=== PATIENT | female | born 1955 | race Caucasian/White ===

== ENCOUNTER 2016-07-27 01:46 | Inpatient (IN) | payer MEDICAID ==
[~2016-07-27] VITALS: Ht 157.5 cm; Wt 73.3 kg
[2016-07-27] VITALS (13 sets, daily range): BP systolic 104–173; BP diastolic 47–97; PULSE 79–111; RESP 15–29; TEMP 99.1–100.7; O2SAT 89–97
[2016-07-27] MEDS ORDERED: RESP: ALBUTEROL 2.5 MG/IPRATROPIUM 0.5 MG NEB (SCH) INH ONE (02:15)
[2016-07-27] MEDS ORDERED: SODIUM CHLORIDE 0.9% FLUSH 10 ML FLUSH IVF PRN ×2 (02:15→06:00)
[2016-07-27 02:29] LABS: AUTOMATED NEUTROPHIL # 2.5 TH/MM3 (1.8-7.7); BASOPHIL % 0.3 % (0.0-2.0); EOSINOPHIL # 0.1 TH/MM3 (0-0.4); EOSINOPHIL % 2.2 % (0.0-4.0); HEMATOCRIT 39.9 % (35.0-46.0); HEMO FLAGS DIFF FINAL; LYMPH % 33.4 % (9.0-44.0); LYMPHOCYTE # 1.5 TH/MM3 (1.0-4.8); MEAN CELL VOLUME 87.1 FL (80.0-100.0); MEAN CORPUSCULAR HGB CONC 33.3 % (32.0-36.0); MONO % 11.5 % (0.0-8.0); NEUT % 52.6 % (16.0-70.0); PLATELET COUNT 189 TH/MM3 (150-450); RED BLOOD COUNT 4.59 MIL/MM3 (4.00-5.30); RED CELL DISTRIBUTION WIDTH 12.9 % (11.6-17.2); WHITE BLOOD COUNT 4.6 TH/MM3 (4.0-11.0)
[2016-07-27 02:36] LABS: POTASSIUM 3.9 MEQ/L (3.5-5.1)
--- NOTE | 2016-07-27 02:45 | RADHPO ---
EXAM DATE/TIME: 07/27/2016 02:37 [facility] COMPARISON: No previous studies available for comparison. INDICATIONS : Shortness of breath. MEDICAL HISTORY : None. SURGICAL HISTORY : None. ENCOUNTER: Initial ACUITY: 3 days PAIN SCORE: 0/10 LOCATION: Bilateral chest FINDINGS: Portable AP view of the chest demonstrates a normal-sized cardiac silhouette. No effusion, consolidat ion, or pneumothorax is visualized. There is slight blunting of the right costophrenic sulcus. The crys edilia and soft tissues demonstrate no acute abnormality. CONCLUSION: No acute cardiopulmonary abnormality is identified. Ignacio Tran MD on July 27, 2016 at 2:43 Board Certified Radiologist. This report was verified electronically.
[2016-07-27] MEDS ORDERED: ASPI1TAB69 PO (02:47)
[2016-07-27] MEDS ORDERED: LEXA5TAB PO (02:47)
[2016-07-27] MEDS ORDERED: LEVO.125 PO (02:47)
[2016-07-27] MEDS ORDERED: Cholesterol Med (02:48)
[2016-07-27 03:08] LABS: BICARBONATE 28.7 MEQ/L (21.0-32.0); MAGNESIUM 1.9 MG/DL (1.5-2.5)
--- NOTE | 2016-07-27 03:14 | PD ---
HPI Chief Complaint: Respiratory Symptoms Time Seen by Provider: 02:07 Travel History International Travel<30 days: No Contact w/Intl Traveler<30days: No Traveled to known affect area: No History of Present Illness HPI 6-3 year-old female presents to the emergency department by private transportation for evaluation of cough congestion and shortness of breath 3 days. Patient reports she is visiting here from [place]. Patient states she's been here for approximately a week and is scheduled to go home tomorrow. Patient states when she first arrived she had one day of watery diarrhea without vomiting or fever or respiratory symptoms. Patient states symptoms resolved 3 days ago started with coughing congestion. Patient states that she has not had any phlegm production. Patient reports that approximately one month ago to 2 months ago in [place] she was diagnosed with pneumonia was given an inhaler at that time but does not typically use an inhaler did not bring it with her on vacation to [place]. Patient's had no fever chills. Patient denies chest pain no pleuritic chest pain. No report of lower extremity pain or swelling. [facility] Past Medical History Narrative Medical Arthritis anxiety high cholesterol bronchitis pneumonia fibromyalgia hypothyroidism cholecystectomy appendectomy alcohol use marijuana use nursing notes reviewed Hx Anticoagulant Therapy: Yes Arthritis: Yes Anxiety: Yes High Cholesterol: Yes Diminished Hearing: No Medical other: Yes (Fibromyalgia) Thyroid Disease: Yes Tetanus Vaccination: < 5 Years Influenza Vaccination: No Menopausal: Yes : 3 Para: 3 Past Surgical History Appendectomy: Yes Cholecystectomy: Yes Tonsillectomy: Yes Social History Alcohol Use: Yes (Rarely) Tobacco Use: No ("Quit 16 months ago.") Substance Use: Yes ("[place] rarely") Allergies-Medications (Allergen,Severity, Reaction): Coded Allergies: Compazine (Verified Allergy, Severe, UNKNOWN, 07/27/16) Tetracycline (Verified Allergy, Severe, Hives, 07/27/16) Reported Meds & Prescriptions Reported Meds & Active Scripts Active Reported [Cholesterol Med] Unknown Dose DAILY Lexapro (Escitalopram Oxalate) 5 Mg Tab 5 Mg PO DAILY Aspirin 81 Mg Tabdr 81 Mg PO DAILY Synthroid (Levothyroxine Sodium) 125 Mcg Tab 125 Mcg PO DAILY Review of Systems Except as stated in HPI: all other systems reviewed are Neg General / Constitutional: No: Fever, Chills HENT: Positive: Congestion Cardiovascular: No: Chest Pain or Discomfort Respiratory: Positive: Cough, Shortness of Breath, Wheezing Gastrointestinal: Positive: Diarrhea (one week ago), No: Nausea, Vomiting, Abdominal Pain Genitourinary: No: Dysuria Musculoskeletal: No: Myalgias, Arthralgias Skin: No Rash Neurologic: No: Weakness, Dizziness, Syncope Endocrine: No: Heat Intolerance Hematologic/Lymphatic: No: Easy Bruising Physical Exam Narrative GENERAL: Well-developed well-nourished female in no acute distress no respiratory distress SKIN: Warm and dry. HEAD: Normocephalic. EYES: No scleral icterus. No injection or drainage. NECK: Supple, trachea midline. No JVD or lymphadenopathy. CARDIOVASCULAR: Regular rate and rhythm without murmurs, gallops, or rubs. RESPIRATORY: Breath sounds equal bilaterally. No accessory muscle use. Rare expiratory wheeze no rales no rhonchi. GASTROINTESTINAL: Abdomen soft, non-tender, nondistended. MUSCULOSKELETAL: No cyanosis, or edema. Radial and dorsalis pedis pulses 2+ to palpation. BACK: Nontender without obvious deformity. No CVA tenderness. Data Data Last Documented VS Vital Signs Date Time Temp Pulse Resp B/P Pulse Ox O2 Delivery O2 Flow Rate FiO2 07/27/16 02:49 94 20 159/97 97 Room Air 07/27/16 01:55 99.2 Orders Complete Blood Count With Diff (07/27/16 02:07) Basic Metabolic Panel (Bmp) (07/27/16 02:07) B-Type Natriuretic Peptide (07/27/16 02:07) Magnesium (Mg) (07/27/16 02:07) Troponin I (07/27/16 02:07) Influenzae A/B Antigen (07/27/16 02:07) Iv Access Insert/Monitor (07/27/16 02:07) Electrocardiogram (07/27/16 02:07) Ecg Monitoring (07/27/16 02:07) Oximetry (07/27/16 02:07) Oxygen Administration (07/27/16 02:07) Chest, Single Ap (07/27/16 02:07) Sodium Chloride 0.9% Flush (Ns Flush) (07/27/16 02:15) Albuterol-Ipratropium Neb (Duoneb Neb) (07/27/16 02:15) Protein Corrected Calcium(Pcc) (07/27/16 02:10) D-Dimer (07/27/16 03:14) Calcium Gluconate Inj (Calcium Gluconate (07/27/16 03:45) Labs Laboratory Tests Test 07/27/16 02:10 White Blood Count 4.6 TH/MM3 Red Blood Count 4.59 MIL/MM3 Hemoglobin 13.3 GM/DL Hematocrit 39.9 % Mean Corpuscular Volume 87.1 FL Mean Corpuscular Hemoglobin 29.0 PG Mean Corpuscular Hemoglobin 33.3 % Concent Red Cell Distribution Width 12.9 % Platelet Count 189 TH/MM3 Mean Platelet Volume 8.8 FL Neutrophils (%) (Auto) 52.6 % Lymphocytes (%) (Auto) 33.4 % Monocytes (%) (Auto) 11.5 % Eosinophils (%) (Auto) 2.2 % Basophils (%) (Auto) 0.3 % Neutrophils # (Auto) 2.5 TH/MM3 Lymphocytes # (Auto) 1.5 TH/MM3 Monocytes # (Auto) 0.5 TH/MM3 Eosinophils # (Auto) 0.1 TH/MM3 Basophils # (Auto) 0.0 TH/MM3 CBC Comment DIFF FINAL Differential Comment Sodium Level 141 MEQ/L Potassium Level 3.9 MEQ/L Chloride Level 103 MEQ/L Carbon Dioxide Level 28.7 MEQ/L Anion Gap 9 MEQ/L Blood Urea Nitrogen 20 MG/DL Creatinine 0.86 MG/DL Estimat Glomerular Filtration 67 ML/MIN Rate Random Glucose 102 MG/DL Calcium Level 6.2 MG/DL Protein Corrected Calcium 6.4 MG/DL Magnesium Level 1.9 MG/DL Troponin I 0.02 NG/ML B-Type Natriuretic Peptide 21 PG/ML Total Protein 6.6 GM/DL [facility] Medical Decision Making Medical Screen Exam Complete: Yes Emergency Medical Condition: Yes Medical Record Reviewed: Yes Interpretation(s) EKG: Normal sinus rhythm rate [address] elevation or injury pattern change or ectopy noted bnp: 21, not elevated troponin I: 0.02, not elevated Last Impressions Chest X-Ray 07/27/16 0207 Signed Impressions: Service Date/Time: Wednesday, July 27, 2016 02:37 - CONCLUSION: No acute cardiopulmonary abnormality is identified. Ignacio Tran MD CBC & BMP Diagram 07/27/16 02:10 Vital Signs Date Time Temp Pulse Resp B/P Pulse Ox O2 Delivery O2 Flow Rate FiO2 07/27/16 02:49 94 20 159/97 97 Room Air 07/27/16 02:00 20 96 Room Air 07/27/16 02:00 96 Room Air 07/27/16 02:00 96 Room Air 07/27/16 01:55 99.2 88 20 173/84 96 Differential Diagnosis Dyspnea, bronchitis, pneumonia, CHF, PE, viral syndrome Narrative Course Patient placed on monitoring analyst EKG ordered IV access obtained specimens collected and sent for resulting patient administered DuoNeb updraft Lab values found grossly within normal range except for hypocalcemia does not yet protein and corrected D-dimer ordered 03:20 identified to have low calcium and protein corrected calcium is 6.4 patient informed of abnormal lab value and now reports that she's been told this before with further questioning she identifies that she has had parathyroidectomy and is supposed to be on calcium supplements at all times but has chosen not to do so. Patient administered calcium replacement. Hanh Fischer MD Jul 27, 2016 03:14
[2016-07-27 03:23] LABS: CALCIUM-PROTEIN CORRECTED 6.4 MG/DL (8.5-10.1)
[2016-07-27] MEDS ORDERED: CALCIUM GLUCONATE INJ 1 GM in DEXTROSE 5% IN WATER 100ML INJ 100 ML IV ONE ×2 (03:45)
[2016-07-27] MEDS ORDERED: methylPREDNISolone SOD SUCC 125 MG/2 ML VIAL IV PUSH ONE (03:45)
[2016-07-27] MEDS ORDERED: ONDANSETRON HCL 4 MG/2 ML VIAL IV PUSH ONE (03:45)
[2016-07-27] MEDS: RESP: ALBUTEROL 2.5 MG/IPRATROPIUM 0.5 MG NEB (SCH) INH ×2 (03:53→04:04)
[2016-07-27] MEDS ORDERED: CALCIUM GLUCONATE 500 MG TAB PO ONE (04:15)
[2016-07-27] MEDS ORDERED: IOHEXOL 350 MG/ML 10 ML VIAL (for RAD DIAG) IV ONE (05:23)
--- NOTE | 2016-07-27 05:27 | RADHPO ---
EXAM DATE/TIME: 07/27/2016 04:50 [facility] COMPARISON: CHEST SINGLE AP, July 27, 2016, 2:37. INDICATIONS : Shortness of breath for three days. IV CONTRAST: 80 cc Omnipaque 350 (iohexol) IV RADIATION DOSE: 11.02 CTDIvol (mGy) MEDICAL HISTORY : None SURGICAL HISTORY : Tonsillectomy. Cholecystectomy. ENCOUNTER: Initial ACUITY: 3 days PAIN SCALE: 0/10 LOCATION: chest TECHNIQUE: Volumetric scanning of the chest was performed using a pulmonary embolism protocol MIP images were re constructed. Using automated exposure control and adjustment of the mA and/or kV according to patien t size, radiation dose was kept as low as reasonably achievable to obtain optimal diagnostic quality images. FINDINGS: There is mild respiratory motion artifact. PULMONARY ARTERIES: No filling defects are seen in the pulmonary arteries through the segmental level. LUNGS: There is no consolidation or pneumothorax . Calcified granuloma is present in the right lung. There a re secretions in the left lower lobe bronchi. PLEURAE: There is no pleural thickening or pleural effusion. MEDIASTINUM: The heart and great vessels demonstrate no acute finding. There is coronary artery calcification and moderate to severe atherosclerotic disease of the aorta. There are nonenlarged calcified right hilar and mediastinal lymph nodes. MUSCULOSKELETAL: No acute abnormality is identified. MISCELLANEOUS: The visualized upper abdominal organs demonstrate no acute abnormality. There are calcifications with in the spleen. CONCLUSION: 1. No PE is identified. 2. There are mild secretions in the left lower lobe bronchus suspicious for aspiration. 3. There are imaging findings indicative of prior granulomatous infection. 4. Severe coronary calcification and atherosclerotic disease of aorta. Ignacio Tran MD on July 27, 2016 at 5:21 Board Certified Radiologist. This report was verified electronically.
[2016-07-27] MEDS ORDERED: CEFEPIME INJ 2,000 MG in SODIUM CHLORIDE 0.9% INJ 100 ML IV ONE (05:45)
[2016-07-27] MEDS ORDERED: VANCOMYCIN INJ 1,000 MG in SODIUM CHLOR 0.9% 250 ML INJ 250 ML IV ONE (05:45)
[2016-07-27] MEDS ORDERED: RESP: ALBUTEROL 2.5 MG/IPRATROPIUM 0.5 MG NEB (PRN) NEB (06:00)
[2016-07-27] MEDS ORDERED: SODIUM CHLORIDE 0.9% FLUSH 10 ML FLUSH IV FLUSH PRN (06:00)
[2016-07-27] MEDS ORDERED: ACETAMINOPHEN 325 MG TAB PO PRN (06:00)
[2016-07-27] MEDS ORDERED: BISACODYL 10 MG SUPP RECTAL PRN (06:00)
[2016-07-27] MEDS ORDERED: ONDANSETRON HCL 4 MG/2 ML VIAL IVP PRN (06:00)
[2016-07-27] MEDS ORDERED: Vancomycin Consult Pharmacy 1 EA OTHER SCH (06:00)
[2016-07-27] MEDS: SODIUM CHLOR 0.9% 1000 ML INJ 1,000 ML IV SCH ×2 (06:20→16:41)
[2016-07-27] MEDS: LEVOTHYROXINE SODIUM 125 MCG TAB PO SCH (07:22)
[2016-07-27] MEDS ORDERED: SODIUM CHLORIDE 0.9% FLUSH 10 ML FLUSH IV FLUSH SCH (09:00)
[2016-07-27] MEDS: BUDESONIDE-FORMOTEROL 160/4.5 MCG INHALER INH SCH ×2 (09:52→20:51)
[2016-07-27] MEDS: guaiFENesin E.R. 600 MG TAB PO SCH ×2 (09:52→20:53)
[2016-07-27] MEDS: ESCITALOPRAM OXALATE 10 MG TAB PO SCH (09:52)
[2016-07-27] MEDS: ASPIRIN EC 81 MG TABEC PO SCH (09:52)
[2016-07-27] MEDS: SODIUM CHLORIDE 0.9% FLUSH 10 ML FLUSH IV FLUSH SCH ×2 (09:53→20:51)
[2016-07-27] MEDS: ACETAMINOPHEN/HYDROcodone 325 MG/5 MG TAB PO PRN ×2 (10:01→15:53)
--- NOTE | 2016-07-27 10:33 | HHI.HP ---
[facility] Service [facility] Primary Care Physician Non-Staff Admission Diagnosis dyspnea w/ aspiriation; hypocalcemia; sirs Diagnoses: (1) Shortness of breath Diagnosis: Principal (2) History of tobacco use Diagnosis: Secondary (3) Hypoparathyroidism Diagnosis: Principal (4) Hypocalcemia Diagnosis: Secondary Chief Complaint: Ongoing dyspnea with associated cough and congestion Travel History International Travel<30 Days: No Contact w/Intl Traveler <30 Da: No Traveled to Known Affected Are: No Sepsis Criteria SIRS Criteria (2 or more): Heart rate over 90 Sepsis Criteria (SIRS+source): Infect source susp/known History of Present Illness Ms. Fuentes is a 61-year-old female with a known history of parathyroidectomy at age 11 (she is unaware of the indication) with hypoparathyroidism currently on synthroid, a 50-pack year smoking history, recent pneumonia a couple months ago. Per patient report she drove down here from [place] to visit her children. She complaints of ongoing shortness of breath for the past 3 days with associated nonproductive cough, congestion and diarrhea with nausea. Patient does complain of pressure in her chest when she coughs. She does admit to taking DayQuil and an expectorant with minimal relief. Patient states a couple months ago she was diagnosed with pneumonia, treated with steroids and antibiotics. Symptoms had subsided since but now have returned. Chest x-ray, influenza negative and BC pending. Significantly low protein corrected calcium, 6.4. Patient has been noncompliant in taking calcium to control her hypoparathyroidism "I never got around to it." Low-grade fevers noted. Denies any recent difficulty in swallowing. Diarrhea has now resolved. No abdominal pain. The patient has never been formally tested for COPD. She also has anxiety. Her son and [id number] are at bedside and are quite insistent that she be able to drive home with them tomorrow as the do not have a condo to stay in another now having to stay in a hotel in [place]. [id number] is also questioning if she can just have the speech therapy swallow evaluation done back in [place] "to avoid any more stress." Review of Systems Constitutional: COMPLAINS OF: Fatigue, Fever, DENIES: Diaphoretic episodes, Weight gain, Weight loss, Chills, Dizziness, Change in appetite, Night Sweats Endocrine: COMPLAINS OF: Heat/cold intolerance, DENIES: Abnorml menstrual pattern, Polydipsia, Polyuria, Polyphagia Eyes: DENIES: Blurred vision, Diplopia, Eye inflammation, Eye pain, Vision loss , Photosensitivity, Double Vision Ears, nose, mouth, throat: DENIES: Tinnitus, Hearing loss, Vertigo, Nasal discharge, Oral lesions, Throat pain, Hoarseness, Ear Pain, Running Nose, Epistaxis, Sinus Pain, Toothache, Odynophagia Respiratory: COMPLAINS OF: Cough, Shortness of breath, DENIES: Apneas, Snoring , Wheezing, Hemoptysis, Sputum production Cardiovascular: COMPLAINS OF: Chest pain, Dyspnea on Exertion, DENIES: Palpitations, Syncope, PND, Lower Extremity Edema, Orthopnea, Claudication Gastrointestinal: DENIES: Abdominal pain, Black stools, Bloody stools, Constipation, Diarrhea, Nausea, Vomiting, Difficulty Swallowing, Anorexia Genitourinary: DENIES: Abnormal vaginal bleeding, Dysmenorrhea, Dyspareunia, Sexual dysfunction, Urinary frequency, Urinary incontinence, Urgency, Hematuria , Dysuria, Nocturia, Vaginal discharge Musculoskeletal: COMPLAINS OF: Muscle aches, DENIES: Joint pain, Stiffness, Joint Swelling, Back pain, Neck pain Integumentary: DENIES: Abnormal pigmentation, Pruritus, Rash, Nail changes, Breast masses, Breast skin changes, Nipple discharge Hematologic/lymphatic: DENIES: Bruising, Lymphadenopathy Immunologic/allergic: DENIES: Eczema, Urticaria Neurologic: DENIES: Abnormal gait, Headache, Localized weakness, Paresthesias, Seizures, Speech Problems, Tremor, Poor Balance Psychiatric: DENIES: Anxiety, Confusion, Mood changes, Depression, Hallucinations, Agitation, Suicidal Ideation, Homicidal Ideation, Delusions Past Family Social History Past Medical History Fibromylagia Hypercholestermia Hypoparathyroidism History of tobacco use Past Surgical History Parathyroidectomy Cholecystectomy Appendectomy Tonsillectomy Reported Medications Reported Meds & Active Scripts Active Reported [Cholesterol Med] Unknown Dose DAILY Lexapro (Escitalopram Oxalate) 5 Mg Tab 5 Mg PO DAILY Aspirin 81 Mg Tabdr 81 Mg PO DAILY Synthroid (Levothyroxine Sodium) 125 Mcg Tab 125 Mcg PO DAILY Allergies: Coded Allergies: Compazine (Verified Allergy, Severe, UNKNOWN, 07/27/16) Tetracycline (Verified Allergy, Severe, Hives, 07/27/16) Family History No significant family history noted. Social History Patient lives in [place] at home alone. Admits to smoking cessation 16 months ago after a 50 pack year history. Occasional alcohol use. Denies any illicit drug use. Physical Exam Vital Signs Vital Signs Date Time Temp Pulse Resp B/P Pulse Ox O2 Delivery O2 Flow Rate FiO2 07/27/16 06:30 99.6 107 20 133/70 92 07/27/16 06:30 107 07/27/16 06:20 99.9 102 20 152/73 95 Nasal Cannula 2 07/27/16 06:20 95 Nasal Cannula 2.00 07/27/16 05:38 90 Nasal Cannula 2 07/27/16 05:15 99.7 111 20 145/67 95 Room Air 07/27/16 05:00 20 07/27/16 04:00 91 20 152/80 95 Room Air 07/27/16 02:49 94 20 159/97 97 Room Air 07/27/16 02:00 20 96 Room Air 07/27/16 02:00 96 Room Air 07/27/16 02:00 96 Room Air 07/27/16 01:55 99.2 88 20 173/84 96 Physical Exam GENERAL: This is a well-nourished, well-developed patient, in no apparent distress. SKIN: No rashes, ecchymoses or lesions. Cool and dry. HEAD: Atraumatic. Normocephalic. No temporal or scalp tenderness. EYES: Pupils equal round and reactive. Extraocular motions intact. No scleral icterus. No injection or drainage. No facial twitching. ENT: Nose without bleeding, purulent drainage or septal hematoma. Airway patent. NECK: Trachea midline. No JVD or lymphadenopathy. Supple, nontender, no meningeal signs. CARDIOVASCULAR: Regular rate and rhythm without murmurs, gallops, or rubs. RESPIRATORY: Coarse breath sounds throughout, with expiratory wheezing in right lower lobe. Breath sounds equal bilaterally. GASTROINTESTINAL: Abdomen soft, non-tender, nondistended. No hepato-splenomegaly , or palpable masses. No guarding. MUSCULOSKELETAL: Extremities without clubbing, cyanosis, or edema. No joint tenderness, effusion, or edema noted. No calf tenderness. Negative Homans sign bilaterally. NEUROLOGICAL: Awake and alert. Cranial nerves II through XII intact. Motor and sensory grossly within normal limits. Five out of 5 muscle strength in all muscle groups. Normal speech. Laboratory Laboratory Tests Test 07/27/16 07/27/16 07/27/16 02:10 03:40 05:57 White Blood Count 4.6 Red Blood Count 4.59 Hemoglobin 13.3 Hematocrit 39.9 Mean Corpuscular Volume 87.1 Mean Corpuscular Hemoglobin 29.0 Mean Corpuscular Hemoglobin 33.3 Concent Red Cell Distribution Width 12.9 Platelet Count 189 Mean Platelet Volume 8.8 Neutrophils (%) (Auto) 52.6 Lymphocytes (%) (Auto) 33.4 Monocytes (%) (Auto) 11.5 Eosinophils (%) (Auto) 2.2 Basophils (%) (Auto) 0.3 Neutrophils # (Auto) 2.5 Lymphocytes # (Auto) 1.5 Monocytes # (Auto) 0.5 Eosinophils # (Auto) 0.1 Basophils # (Auto) 0.0 CBC Comment DIFF FINAL Differential Comment Sodium Level 141 Potassium Level 3.9 Chloride Level 103 Carbon Dioxide Level 28.7 Anion Gap 9 Blood Urea Nitrogen 20 Creatinine 0.86 Estimat Glomerular Filtration 67 Rate Random Glucose 102 Calcium Level 6.2 Protein Corrected Calcium 6.4 Magnesium Level 1.9 Troponin I 0.02 B-Type Natriuretic Peptide 21 Total Protein 6.6 D-Dimer Quantitative (PE/DVT) 1.69 Lactic Acid Level 1.2 Date/Time Procedure Status Source Growth 07/27/16 06:05 Aerobic Blood Culture Received Blood Peripheral Pending 07/27/16 06:05 Anaerobic Blood Culture Received Blood Peripheral Pending 07/27/16 02:10 Influenza Types A,B Antigen (RITU) - Final Complete Nasal Washing NEGATIVE FOR FLU A AND B ANTIGEN.... Result Diagram: 07/27/1620907/27/16209 Imaging Last Impressions Chest X-Ray 07/27/16206 Signed Impressions: Service Date/Time: Wednesday, July 27, 2016 02:37 - CONCLUSION: No acute cardiopulmonary abnormality is identified. Ignacio Tran MD CT Angiography 07/27/16 0000 Signed Impressions: Service Date/Time: Saturday, July 27, 2016 04:50 - CONCLUSION: 1. No PE is identified. 2. There are mild secretions in the left lower lobe bronchus suspicious for aspiration. 3. There are imaging findings indicative of prior granulomatous infection. 4. Severe coronary calcification and atherosclerotic disease of aorta. Ignacio Tran MD Septic Shock Reassessment Heart: Regular rate and rhythm Lungs: Course Skin: Warm Peripheral Pulses: Bounding Right Radial Bounding Left Radial Capillary Refill: Brisk, <2 seconds Assessment and Plan Problem List: (1) Hypocalcemia ICD Code: E83.51 Status: Acute (2) Hypoparathyroidism ICD Code: E20.9 Status: Acute (3) Shortness of breath ICD Code: R06.02 Status: Acute (4) History of tobacco use ICD Code: Z87.891 Status: Acute (5) COPD exacerbation ICD Code: J44.1 Status: Acute (6) Viral upper respiratory infection ICD Code: J06.9 Status: Acute Assessment and Plan Hypoxia, Dyspnea and cough, patient has long-standing history of tobacco use, likely chronic obstructive pulmonary disease with acute exacerbation, complicated by possible aspiration - Chest x-ray was without any acute abnormality. CT scan does indicate mild secretions in left lower lobe bronchus suspicious for aspiration. - Patient started on vancomycin and cefepime - however no indication of underlying sepsis, will DC and change her to Levaquin. - Continue Solu-Medrol 60 mg IV every 6 hours - Continue duo nebs - Continue O2 supplementation maintain O2 sats greater than 92% - currently sats are 88% to 90% on 3 L nasal cannula oxygen. - Swallow eval, assess aspiration risk - Continue Symbicort, Mucinex - Start Acapella -Family is quite insistent that she drive back to [place] with them tomorrow. I explained that I suspect the patient will need oxygen and that she still has severe hypocalcemia and it is unlikely she will be discharged home tomorrow and I encouraged him to make alternative arrangements. Explained the process of getting oxygen and that if she is going to drive she will need a portable oxygen concentrator. They are not very happy with this assessment. Severe hypocalcemia, likely secondary to acquired hypoparathyroidism as the patient had a parathyroidectomy as a child for unknown indication - the patient has been told that she has hypocalcemia in the past and to take calcium but states that she "never got around to doing so" she denies circumoral paresthesias, seizures. She does complain of pain in her lower extremities and generalized weakness. Hypoparathyroidism - Protein corrected calcium, 6.4. Given 1g calcium gluconate PO and 1g calcium gluconate IV. - Restart Synthroid daily. - Calcitriol ordered daily, start calcium carbonate supplementation. - Labs: phosphorus, albumin, PTH, vitamin D metabolites DVT Prophylaxis - Sequential compression devices and TEDs. Written by Zak Gonzales PA-C, acting as scribe for Dr. Perla on 07/27/16 at 1500. The documentation accurately reflects the work and decisions performed face-to- face by Dr. Perla on 07/27/16 at 1500. All or portions of this note were transcribed by scribe Zak Gonzales. I, Dr. Selene Perla personally performed the history, physical exam, and medical decision making; and confirmed the accuracy of the information in the transcribed note. Authenticated by Dr. Selene Perla on 07/27/16 at 15:42. Physician Certification 2 Midnight Certification Type: Admission for Inpatient Services Order for Inpatient Services The services are ordered in accordance with Medicare regulations or non- Medicare payer requirements, as applicable. In the case of services not specified as inpatient-only, they are appropriately provided as inpatient services in accordance with the 2-midnight benchmark. Estimated LOS (days): 2 days is the estimated time the patient will need to remain in the hospital, assuming treatment plan goals are met and no additional complications. Post-Hospital Plan: [place] Zak Gonzales Jul 27, 2016 10:33 Selene Perla MD Jul 27, 2016 15:43
[2016-07-27] MEDS ORDERED: CALCITRIOL 0.25 MCG CAP PO SCH (12:00)
[2016-07-27] MEDS ORDERED: CALCIUM/VITAMIN D 250 MG/125 U TAB PO SCH (15:00)
[2016-07-27] MEDS: RESP: ALBUTEROL 2.5 MG/IPRATROPIUM 0.5 MG NEB (SCH) NEB ×2 (16:22→19:25)
[2016-07-27] MEDS ORDERED: CALCIUM/VITAMIN D 250 MG/125 U TAB PO PRN (17:15)
[2016-07-27] MEDS ORDERED: CEFEPIME INJ 1,000 MG in SODIUM CHLORIDE 0.9% INJ 100 ML IV SCH (18:00)
[2016-07-27] MEDS ORDERED: CALCIUM GLUCONATE INJ 1 GM in SODIUM CHLORIDE 0.9% INJ 100 ML IV ONE ×2 (19:00→20:00)
[2016-07-27] MEDS: CALCIUM CARBONATE 1.25 GM (CA 500 MG) TAB PO SCH (20:52)
[2016-07-27] MEDS: CALCITRIOL 0.25 MCG CAP PO SCH (20:53)
[2016-07-27] MEDS: ACETAMINOPHEN/HYDROcodone 325 MG/10 MG TAB PO PRN (20:57)
[2016-07-28] VITALS (10 sets, daily range): BP systolic 108–142; BP diastolic 56–79; PULSE 71–95; RESP 14–20; TEMP 96.1–98.3; O2SAT 92–97
[2016-07-28] MEDS ORDERED: VANCOMYCIN INJ 1,150 MG in SODIUM CHLOR 0.9% 250 ML INJ 250 ML IV SCH ×2
[2016-07-28] MEDS: SODIUM CHLOR 0.9% 1000 ML INJ 1,000 ML IV SCH ×2 (04:24→11:46)
[2016-07-28] MEDS: ACETAMINOPHEN/HYDROcodone 325 MG/10 MG TAB PO PRN ×3 (04:27→16:57)
[2016-07-28] MEDS: LEVOTHYROXINE SODIUM 125 MCG TAB PO SCH (06:12)
[2016-07-28 06:15] LABS: AUTOMATED NEUTROPHIL # 6.5 TH/MM3 (1.8-7.7); BASOPHIL # 0.1 TH/MM3 (0-0.2); BASOPHIL % 0.6 % (0.0-2.0); EOSINOPHIL % 0.1 % (0.0-4.0); HEMATOCRIT 33.5 % (35.0-46.0); HEMO FLAGS DIFF FINAL; LYMPH % 15.2 % (9.0-44.0); LYMPHOCYTE # 1.3 TH/MM3 (1.0-4.8); MEAN CORPUSCULAR HEMOGLOBIN 28.7 PG (27.0-34.0); MEAN CORPUSCULAR HGB CONC 32.6 % (32.0-36.0); MONO % 8.2 % (0.0-8.0); NEUT % 75.9 % (16.0-70.0); PLATELET COUNT 153 TH/MM3 (150-450); RED BLOOD COUNT 3.81 MIL/MM3 (4.00-5.30); RED CELL DISTRIBUTION WIDTH 12.8 % (11.6-17.2); WHITE BLOOD COUNT 8.6 TH/MM3 (4.0-11.0)
[2016-07-28 06:30] LABS: POTASSIUM 3.9 MEQ/L (3.5-5.1)
[2016-07-28 06:46] LABS: BICARBONATE 26.2 MEQ/L (21.0-32.0); TOTAL BILIRUBIN ADULT 0.2 MG/DL (0.2-1.0)
[2016-07-28 06:48] LABS: CALCIUM-PROTEIN CORRECTED 7.1 MG/DL (8.5-10.1)
[2016-07-28] MEDS: RESP: ALBUTEROL 2.5 MG/IPRATROPIUM 0.5 MG NEB (SCH) NEB ×4 (07:28→19:16)
[2016-07-28] MEDS: BUDESONIDE-FORMOTEROL 160/4.5 MCG INHALER INH SCH (09:00)
[2016-07-28] MEDS ORDERED: CALCIUM GLUCONATE INJ 2 GM in SODIUM CHLORIDE 0.9% INJ 100 ML IV ONE (09:00)
[2016-07-28] MEDS: ASPIRIN EC 81 MG TABEC PO SCH (09:00)
--- NOTE | 2016-07-28 10:25 | HHI.PR ---
Subjective Remarks Patient seen and examined by myself and Dr. Perla. Patient sitting up in bed eating breakfast, states relief of nausea or any further shortness of breath. Afebrile. On 2L NC with sats at 94%. Improved to 97% after deep breathing. Motivated to use IS and acapella. Wants to go home tomorrow. Objective Vitals Vital Signs Date Time Temp Pulse Resp B/P Pulse Ox O2 Delivery O2 Flow Rate FiO2 07/28/16 07:30 96 Nasal Cannula 3.00 07/28/16 04:00 98.3 79 16 110/59 97 07/28/16 04:00 79 07/28/16 00:00 98.3 71 14 108/56 96 07/28/16 00:00 75 07/27/16 20:00 99.1 94 22 117/59 94 07/27/16 20:00 79 07/27/16 19:25 94 Nasal Cannula 3.00 07/27/16 16:26 93 Nasal Cannula 3.00 07/27/16 16:00 100.7 94 29 105/54 91 07/27/16 12:00 99.1 89 15 104/47 89 I/O 07/27/16 07/27/16 07/27/16 07/28/16 07/28/16 07/28/16 07:00 15:00 23:00 07:00 15:00 23:00 Intake Total 100 ml 2421 ml 1191 ml Output Total 1100 ml 600 ml Balance 100 ml 1321 ml 591 ml Intake Oral 720 ml 300 ml IV Total 100 ml 1701 ml 891 ml Output Urine Total 1100 ml 600 ml # Voids 1 2 # Bowel Movements 0 Result Diagram: 07/28/16 0550 07/28/16 0550 Imaging Last Impressions Chest X-Ray 07/27/16 0207 Signed Impressions: Service Date/Time: Wednesday, July 27, 2016 02:37 - CONCLUSION: No acute cardiopulmonary abnormality is identified. Ignacio Tran MD CT Angiography 07/27/16 0000 Signed Impressions: Service Date/Time: Wednesday, July 27, 2016 04:50 - CONCLUSION: 1. No PE is identified. 2. There are mild secretions in the left lower lobe bronchus suspicious for aspiration. 3. There are imaging findings indicative of prior granulomatous infection. 4. Severe coronary calcification and atherosclerotic disease of aorta. Ignacio Tran MD Objective Remarks GENERAL: This is a well-nourished, well-developed patient, in no apparent distress. SKIN: No rashes, ecchymoses or lesions. Cool and dry. HEAD: Atraumatic. Normocephalic. No temporal or scalp tenderness. EYES: Pupils equal round and reactive. Extraocular motions intact. No scleral icterus. No injection or drainage. No facial twitching. ENT: Nose without bleeding, purulent drainage or septal hematoma. Airway patent. NECK: Trachea midline. No JVD or lymphadenopathy. Supple, nontender, no meningeal signs. CARDIOVASCULAR: Regular rate and rhythm without murmurs, gallops, or rubs. RESPIRATORY: Breath sounds equal bilaterally, much improved since yesterday. Right posterior lower lobe with present expiratory wheezing. GASTROINTESTINAL: Abdomen soft, non-tender, nondistended. No hepato-splenomegaly , or palpable masses. No guarding. MUSCULOSKELETAL: Extremities without clubbing, cyanosis, or edema. No joint tenderness, effusion, or edema noted. No calf tenderness. Negative Homans sign bilaterally. NEUROLOGICAL: Awake and alert. Cranial nerves II through XII intact. Motor and sensory grossly within normal limits. Five out of 5 muscle strength in all muscle groups. Normal speech. Urinary Catheter: No Vascular Central Line Catheter: No A/P Assessment and Plan Hypoxia, Dyspnea and cough, patient has long-standing history of tobacco use, likely chronic obstructive pulmonary disease with acute exacerbation, complicated by possible aspiration - Chest x-ray negtaive. CT results reviewed. - Levaquin daily continued. - Solu-Medrol 60 mg IV every 6 hours - Continue duo nebs scheduled and PRN - Continue O2 supplementation maintain O2 sats greater than 92% - currently sats are 94% on 2 L nasal cannula oxygen. - Await swallow eval today. Upon assessment, patient does not appear to be aspirating. - Continue Symbicort, Mucinex - IS and acapella continued Severe hypocalcemia, likely secondary to acquired hypoparathyroidism, parathyroidectomy. - Protein corrected calcium, 7.1 today; Vitamin D 10.1 today. Given another 2g calcium gluconate IV and continued on scheduled PO and Calcitrol. - Calcium this afternoon. Labs in am CBC, BMP, mg DVT Prophylaxis - Sequential compression devices and TEDs. Written by aZk Gonzales PA-C, acting as scribe for Dr. Perla on 07/28/16 at [Time]. The documentation accurately reflects the work and decisions performed face-to- face by Dr. Perla on 07/28/16 at [Time]. Zak Gonzales Jul 28, 2016 10:25 Selene Perla MD Jul 28, 2016 14:14
[2016-07-28] MEDS: CALCITRIOL 0.25 MCG CAP PO SCH ×2 (11:42→22:13)
[2016-07-28] MEDS: guaiFENesin E.R. 600 MG TAB PO SCH ×2 (11:42→22:13)
[2016-07-28] MEDS: LEVOFLOXACIN 750 MG TAB PO SCH (11:43)
[2016-07-28] MEDS: ESCITALOPRAM OXALATE 10 MG TAB PO SCH (11:43)
[2016-07-28] MEDS: SODIUM CHLORIDE 0.9% FLUSH 10 ML FLUSH IV FLUSH SCH ×2 (11:44→21:00)
[2016-07-28] MEDS: CALCIUM CARBONATE 1.25 GM (CA 500 MG) TAB PO SCH ×2 (11:46→22:13)
[2016-07-28] MEDS: methylPREDNISolone SOD SUCC 125 MG/2 ML VIAL IV PUSH SCH ×2 (11:46→16:57)
[2016-07-28 15:45] LABS: CALCIUM-PROTEIN CORRECTED 7.8 MG/DL (8.5-10.1)
--- NOTE | 2016-07-28 21:10 | EKG ---
Date Performed: 07/27/2016 Time Performed: 02:16:36 PTAGE: 61 years EKG: Sinus rhythm . Low QRS voltages in precordial leads Borderline ECG NO PREVIOUS TRACING DOCTOR: Hima Lin Interpretating Date/Time 07/28/2016 21:08:55
[2016-07-28] MEDS: ACETAMINOPHEN/HYDROcodone 325 MG/5 MG TAB PO PRN (22:19)
[2016-07-29] VITALS: BP 135/74; PULSE 78; RESP 16; TEMP 98.2; O2SAT 93
[2016-07-29] MEDS: ACETAMINOPHEN/HYDROcodone 325 MG/10 MG TAB PO PRN ×2 (01:27→09:12)
[2016-07-29] MEDS: methylPREDNISolone SOD SUCC 125 MG/2 ML VIAL IV PUSH SCH ×3 (01:28→11:16)
[2016-07-29] MEDS: BUDESONIDE-FORMOTEROL 160/4.5 MCG INHALER INH SCH ×2 (01:28→09:04)
[2016-07-29 04:00] VITALS: BP 149/84; PULSE 74; RESP 18; TEMP 98.2; O2SAT 96
[2016-07-29] MEDS: LEVOTHYROXINE SODIUM 125 MCG TAB PO SCH (05:51)
[2016-07-29] MEDS: RESP: ALBUTEROL 2.5 MG/IPRATROPIUM 0.5 MG NEB (SCH) NEB ×3 (07:06→14:29)
[2016-07-29 07:07] VITALS: O2SAT 95
[2016-07-29 07:25] LABS: POTASSIUM 3.8 MEQ/L (3.5-5.1)
[2016-07-29 07:28] LABS: AUTOMATED NEUTROPHIL # 7.8 TH/MM3 (1.8-7.7); BASOPHIL % 0.2 % (0.0-2.0); EOSINOPHIL # 0.1 TH/MM3 (0-0.4); EOSINOPHIL % 0.6 % (0.0-4.0); HEMATOCRIT 34.2 % (35.0-46.0); LYMPH % 9.2 % (9.0-44.0); LYMPHOCYTE # 0.8 TH/MM3 (1.0-4.8); MEAN CELL VOLUME 89.1 FL (80.0-100.0); MEAN CORPUSCULAR HGB CONC 33.7 % (32.0-36.0); MONO % 4.2 % (0.0-8.0); NEUT % 85.8 % (16.0-70.0); PLATELET COUNT 161 TH/MM3 (150-450); RED BLOOD COUNT 3.84 MIL/MM3 (4.00-5.30); WHITE BLOOD COUNT 9.1 TH/MM3 (4.0-11.0)
[2016-07-29 07:30] LABS: HEMO FLAGS DIFF FINAL
[2016-07-29 07:40] LABS: BICARBONATE 26.8 MEQ/L (21.0-32.0); MAGNESIUM 1.9 MG/DL (1.5-2.5)
[2016-07-29 07:53] LABS: CALCIUM-PROTEIN CORRECTED 7.6 MG/DL (8.5-10.1)
[2016-07-29 08:00] VITALS: BP 149/90; PULSE 109; RESP 16; TEMP 97.9; O2SAT 93
[2016-07-29 09:00] VITALS: PULSE 103
[2016-07-29] MEDS: SODIUM CHLORIDE 0.9% FLUSH 10 ML FLUSH IV FLUSH SCH (09:04)
[2016-07-29] MEDS: ASPIRIN EC 81 MG TABEC PO SCH (09:05)
[2016-07-29] MEDS: ESCITALOPRAM OXALATE 10 MG TAB PO SCH (09:06)
[2016-07-29] MEDS: guaiFENesin E.R. 600 MG TAB PO SCH (09:06)
[2016-07-29] MEDS: CALCIUM CARBONATE 1.25 GM (CA 500 MG) TAB PO SCH (09:07)
[2016-07-29] MEDS: CALCITRIOL 0.25 MCG CAP PO SCH (09:07)
[2016-07-29] MEDS: LEVOFLOXACIN 750 MG TAB PO SCH (11:16)
[2016-07-29] MEDS ORDERED: PHARMACY ORDERED LAB ONE (11:45)
[2016-07-29 12:00] VITALS: BP 137/77; PULSE 114; RESP 18; TEMP 96.8; O2SAT 93
[2016-07-29] MEDS ORDERED: VENTAER INH (12:46)
[2016-07-29] MEDS ORDERED: OYST500T11 PO (12:46)
[2016-07-29] MEDS ORDERED: SYMB160A INH (12:46)
[2016-07-29] MEDS ORDERED: CALC.25 PO (12:46)
[2016-07-29] MEDS ORDERED: LEVA750T PO (12:46)
--- NOTE | 2016-07-29 12:47 | HHI.PR ---
Addendum to Inpatient Note Additional Information To whom it may concern: Please be advised that this patient requires oxygen at 2L per minute to fly. Sincerely, MD Minda Mcgee,Selene Workman MD Jul 29, 2016 12:47
--- NOTE | 2016-07-29 12:49 | HHI.DS ---
Discharge Summary Admission Date Jul 27, 2016 at 05:55 Discharge Date: Jul 29, 2016 Admitting Diagnosis dyspnea w/ aspiriation; hypocalcemia; sirs (1) Hypocalcemia ICD Code: E83.51 (2) Hypoparathyroidism ICD Code: E20.9 (3) Shortness of breath ICD Code: R06.02 (4) History of tobacco use ICD Code: Z87.891 (5) COPD exacerbation ICD Code: J44.1 (6) Viral upper respiratory infection ICD Code: J06.9 Procedures None Brief History - From Admission Ms. Fuentes is a 61-year-old female with a known history of parathyroidectomy at age 11 (she is unaware of the indication) with hypoparathyroidism currently on synthroid, a 50-pack year smoking history, recent pneumonia a couple months ago. Per patient report she drove down here from [place] to visit her children. She complaints of ongoing shortness of breath for the past 3 days with associated nonproductive cough, congestion and diarrhea with nausea. Patient does complain of pressure in her chest when she coughs. She does admit to taking DayQuil and an expectorant with minimal relief. Patient states a couple months ago she was diagnosed with pneumonia, treated with steroids and antibiotics. Symptoms had subsided since but now have returned. Chest x-ray, influenza negative and BC pending. Significantly low protein corrected calcium, 6.4. Patient has been noncompliant in taking calcium to control her hypoparathyroidism "I never got around to it." Low-grade fevers noted. Denies any recent difficulty in swallowing. Diarrhea has now resolved. No abdominal pain. The patient has never been formally tested for COPD. She also has anxiety. Her son and [id number] are at bedside and are quite insistent that she be able to drive home with them tomorrow as the do not have a condo to stay in another now having to stay in a hotel in [place]. [id number] is also questioning if she can just have the speech therapy swallow evaluation done back in [place] "to avoid any more stress. CBC/BMP: 07/29/16 0557 07/29/16 0557 Significant Findings Laboratory Tests Test 07/27/16 07/27/16 07/27/16 07/27/16 02:10 03:40 11:45 16:20 Monocytes (%) (Auto) 11.5 % (0.0-8.0) Blood Urea Nitrogen 20 MG/DL (7-18) Estimat Glomerular Filtration 67 ML/MIN (>89) Rate Calcium Level 6.2 MG/DL 6.3 MG/DL 6.4 MG/DL (8.5-10.1) (8.5-10.1) (8.5-10.1) Protein Corrected Calcium 6.4 MG/DL (8.5-10.1) D-Dimer Quantitative (PE/DVT) 1.69 MG/L FEU (0.00-0.50) Albumin 3.1 GM/DL (3.4-5.0) Parathyroid Hormone (Intact) 3.4 PG/ML (12.4-76.8) 25-Hydroxy Vitamin D Total 10.1 ng/ML (30-100) Test 07/28/16 07/28/16 07/29/16 05:50 14:25 05:57 Red Blood Count 3.81 MIL/MM3 3.84 MIL/MM3 (4.00-5.30) (4.00-5.30) Hemoglobin 10.9 GM/DL 11.5 GM/DL (11.6-15.3) (11.6-15.3) Hematocrit 33.5 % 34.2 % (35.0-46.0) (35.0-46.0) Neutrophils (%) (Auto) 75.9 % 85.8 % (16.0-70.0) (16.0-70.0) Monocytes (%) (Auto) 8.2 % (0.0-8.0) Chloride Level 108 MEQ/L (98-107) Estimat Glomerular Filtration 82 ML/MIN (>89) Rate Calcium Level 6.4 MG/DL 7.4 MG/DL 7.3 MG/DL (8.5-10.1) (8.5-10.1) (8.5-10.1) Protein Corrected Calcium 7.1 MG/DL 7.8 MG/DL 7.6 MG/DL (8.5-10.1) (8.5-10.1) (8.5-10.1) Total Protein 5.6 GM/DL 6.3 GM/DL (6.4-8.2) (6.4-8.2) Albumin 2.6 GM/DL (3.4-5.0) Neutrophils # (Auto) 7.8 TH/MM3 (1.8-7.7) Lymphocytes # (Auto) 0.8 TH/MM3 (1.0-4.8) Random Glucose 135 MG/DL (74-106) Imaging Last Impressions Chest X-Ray 07/27/16 0207 Signed Impressions: Service Date/Time: Wednesday, July 27, 2016 02:37 - CONCLUSION: No acute cardiopulmonary abnormality is identified. Ignacio Tran MD CT Angiography 07/27/16 0000 Signed Impressions: Service Date/Time: Wednesday, July 27, 2016 04:50 - CONCLUSION: 1. No PE is identified. 2. There are mild secretions in the left lower lobe bronchus suspicious for aspiration. 3. There are imaging findings indicative of prior granulomatous infection. 4. Severe coronary calcification and atherosclerotic disease of aorta. Ignacio Tran MD PE at Discharge GENERAL: Well-nourished, well-developed pleasant female patient. SKIN: Warm and dry. HEAD: Normocephalic. EYES: No scleral icterus. No injection or drainage. NECK: Supple, trachea midline. No JVD or lymphadenopathy. CARDIOVASCULAR: Regular rate and rhythm without murmurs, gallops, or rubs. RESPIRATORY: Breath sounds equal bilaterally. She has some scant wheezing in the bases, scattered rhonchi in the bases. No accessory muscle use on room air. GASTROINTESTINAL: Abdomen soft, non-tender, nondistended. EXTREMITIES: No cyanosis, or edema. NEUROLOGICAL: Awake, alert, and oriented x 3. Non-focal. Hospital Course The patient was admitted to the hospital. She was hypoxemic on room air initially. She was treated with Solu-Medrol, antibiotics. Blood cultures were negative. The patient also had severe hypocalcemia but was not symptomatic from it. No circumoral paresthesias. No seizures. The patient was treated with calcitriol and vitamin D as well as several amps of calcium gluconate. Calcium has improved to 7.2 today. PTH level was low consistent with history of hypoparathyroidism due to parathyroidectomy in her youth. She was informed of the lifelong need for calcium and vitamin D supplementation. Patient's oxygenation has improved and on room air she is not desaturating. I still encouraged her to use oxygen in flight. She will be flying back to [place] tomorrow. She'll be prescribed Levaquin, inhalers. I did encourage her to follow-up with her primary care physician this week. Also encouraged her to see a hand patcher, desizing machine back tender. Additionally discussed the coronary artery calcification incidentally found on the chest CT and encouraged her to get a stress test given her history of smoking and family history of coronary artery disease. Care was discussed with the patient and her daughter and bedside in detail. They voiced understanding. She'll be discharged home this afternoon. Pt Condition on Discharge: Stable Discharge Disposition: Discharge Home Discharge Time: > 30 minutes Discharge Instructions DIET: Follow Instructions for: Heart Healthy Diet Speech Therapy-Diet Recommends: Regular Activities you can perform: Regular-No Restrictions New Medications: Albuterol 18 GM Inh (Ventolin Hfa 18 GM Inh) 90 Mcg/Act Aer 2 PUFF INH Q4-6H PRN SHORTNESS OF BREATH #1 Ref 0 INHALER Budesonide-Formoterol Inh (Symbicort Inh) 160-4.5 Mcg/Act Aero 2 PUFF INH Q12HR copd #1 INHALER Calcitriol (Rocaltrol) 0.25 Mcg Cap 0.25 MCG PO BID Electrolyte Replacement #60 CAP Levofloxacin (Levaquin) 750 Mg Tab 750 MG PO DAILY@11 Infection #7 TAB Oyster Shell (Oyster Shell Calcium) 500 Mg Tab 1000 MG PO Q12HR Electrolyte Replacement #60 TAB Continued Medications: Aspirin (Aspirin) 81 Mg Tabdr 81 MG PO DAILY TAB Escitalopram (Lexapro) 5 Mg Tab 5 MG PO DAILY #30 Ref 0 TAB Levothyroxine (Synthroid) 125 Mcg Tab 125 MCG PO DAILY Thyroid #30 Ref 0 TAB ([Cholesterol Med]) Unknown Dose DAILY Selene Perla MD Jul 29, 2016 12:49
== END 2016-07-29 16:17 | disposition home or self-care (01) | DRG 192 ==
LOC: PHED 01:46 → PHEDA 05:55 → PHICU 06:32 → PH3B 07-28 10:16
PROVIDERS: ADMIT Family Medicine; ATTEND Family Medicine
DX: J44.1 Chronic obstructive pulmonary disease with (acute) exacerbation (principal); E83.51 Hypocalcemia; J06.9 Acute upper respiratory infection, unspecified; E89.2 Postprocedural hypoparathyroidism; M79.7 Fibromyalgia; E78.00 Pure hypercholesterolemia, unspecified; R09.02 Hypoxemia; E03.9 Hypothyroidism, unspecified; F41.9 Anxiety disorder, unspecified; Z87.891 Personal history of nicotine dependence; Z91.19 Patient's noncompliance with other medical treatment and regimen; Z82.49 Family history of ischemic heart disease and other diseases of the circulatory system
CPT/HCPCS: 71010; 71275; 80048; 80053; 82040; 82306; 82310; 82330; 82652; 83605; 83735; 83880; 83970; 84100; 84155; 84484; 85025; 85379; 87040; 87804; 93005; 94150; 94620; 94640; 94664; 94667; 94668; 96365; 96375; J0610; J0692; J2405; J2930; J3370; J7030; J7050; Q9967